=== PATIENT | female | born 1970 | race American Indian/Alaskan Native ===

== ENCOUNTER 2018-10-22 05:46 | Observation (INO) | payer OTHER ==
[2018-10-22] MEDS ORDERED: ASPIRIN PO ONE (05:53)
[2018-10-22 06:18] LABS: Basophils % (Auto) 0.5 % (0.0-1.8); Eosinophils # (Auto) 0.3 K/mm3 (0.0-0.4); Eosinophils % (Auto) 2.7 % (0.0-4.3); Hematocrit 33.5 % (30.3-42.9); Hemoglobin 11.2 gm/dl (10.1-14.3); Lymphocytes # (Auto) 3.2 K/mm3 (1.2-5.4); Lymphocytes % (Auto) 31.8 % (13.4-35.0); Mean Corpuscular HGB Conc 33 % (30-34); Mean Corpuscular Volume 88 fl (79-97); Monocytes # (Auto) 0.7 K/mm3 (0.0-0.8); Platelet Count 401 K/mm3 (140-440); Red Blood Count 3.81 M/mm3 (3.65-5.03); Red Cell Distribution Width 12.9 % (13.2-15.2)
--- NOTE | 2018-10-22 06:28 | XRay Report ---
CHEST 1 VIEW 10/22/2018 6:01 AM INDICATION / CLINICAL INFORMATION: Chest Pain. COMPARISON: None available. FINDINGS: SUPPORT DEVICES: None. HEART / MEDIASTINUM: No significant abnormality. LUNGS / PLEURA: No significant pulmonary or pleural abnormality. No pneumothorax. ADDITIONAL FINDINGS: No significant additional findings. IMPRESSION: 1. No acute findings. Signer Name: Fer Maciel MD Signed: 10/22/2018 6:24 AM Workstation Name: [id number]
[2018-10-22 06:45] LABS: BUN/Creatinine Ratio 27; Blood Urea Nitrogen 27 mg/dL (7-17); Calcium 9.3 mg/dL (8.4-10.2); Hemolysis Index 2
[2018-10-22 07:40] LABS: INR 0.91 (0.87-1.13)
--- NOTE | 2018-10-22 07:48 | Emergency Department Report ---
ED Chest Pain HPI - General Chief Complaint: Chest Pain Stated Complaint: CHEST PAIN TIGHTNESS Time Seen by Provider: 10/22/18 06:07 Source: patient, old records reviewed (no previous record) Mode of arrival: Ambulatory Limitations: No Limitations - History of Present Illness Initial Comments: 48-year-old female with a past medical history obesity, hypertension, diabetes (on metformin and insulin), and elevated cholesterol presents also complains of chest pain for several days. Patient c/o chest pain that is sharp and intermittent. No aggravating or alleviating factors reported. Patient denied any associated symptoms. This morning patient while walking to the bathroom pt had palpitations with shortness of breath the last several minutes. Patient has been compliant with her medications and even taking extra doses as needed for persistently elevated blood pressure. Patient recently returned from [place] on Oct 06. No calf tenderness or leg edema reported. Both of her blood pressure medications are from [place] and include Perinodopril 5mg (2 tabs in am and one in pm prn htn) and Amlopres 5mg qam. Patient also takes cholesterol medication. She does not take an aspirin daily, nonsmoker, no family history of CAD/UT, no previous stress tests in the past. Her primary care doctor scheduled an echocardiogram for tomorrow. Patient took her medication prior to arrival. PMD: Dr. Daley Severity scale (0 -10): 3 - Related Data Allergies Allergy/AdvReac Type Severity Reaction Status Date / Time No Known Allergies Allergy Verified 10/22/18 05:52 Heart Score - HEART Score History: Slightly suspicious EKG: Normal Age: 45-65 Risk factors: > 3 risk factors or hx of atherosclerotic disease Troponin: < normal limit HEART Score: 3 ED Review of Systems ROS: Stated complaint: CHEST PAIN TIGHTNESS Other details as noted in HPI Comment: All other systems reviewed and negative ED Past Medical Hx - Past Medical History Previous Medical History?: Yes Hx Hypertension: Yes Hx Diabetes: Yes - Surgical History Past Surgical History?: Yes Additional Surgical History: x4 - Social History Smoking Status: Never Smoker Substance Use Type: None ED Physical Exam - General Limitations: No Limitations - Other Other exam information: Normal: No acute distress Head: Atraumatic Eyes: Normal appearance, pupils equally reactive to light, extraocular movements intact ENT: Moist mucous membranes Neck: Normal appearance, no midline cervical tenderness, no meningismus Chest: Clear to auscultation bilaterally, no wheezes, rales, crackles Cardiovascular: Regular rate and rhythm, chest wall nontender Abdomen: Soft, nontender, nondistended, no rebound or guarding, normal bowel sounds Back: Normal inspection Extremity: Normal appearance, full range of motion,no calf tenderness or leg edema Neuro: Alert and oriented 3, speech normal, no gross motor sensory deficit Psych: Appropriate Skin: No rash ED Course Vital Signs 10/22/18 10/22/18 10/22/18 05:52 06:34 06:46 Temperature 98.2 F Pulse Rate 115 H 103 H 107 H Respiratory 18 16 14 Rate Blood Pressure 195/105 195/105 Blood Pressure 243/120 [Right] O2 Sat by Pulse 100 99 100 Oximetry 10/22/18 10/22/18 10/22/18 07:00 07:16 07:30 Temperature Pulse Rate 101 H 96 H 101 H Respiratory 14 17 19 Rate Blood Pressure 195/105 195/105 173/82 Blood Pressure [Right] O2 Sat by Pulse 100 98 100 Oximetry 10/22/18 10/22/18 07:46 09:37 Temperature 98.7 F Pulse Rate 93 H 88 Respiratory 16 19 Rate Blood Pressure 173/82 Blood Pressure 157/84 [Right] O2 Sat by Pulse 100 100 Oximetry ED Medical Decision Making - Lab Data Result diagrams: 10/22/18 06:04 10/22/18 06:04 Lab Results 10/22/18 10/22/18 10/22/18 Range/Units 06:04 06:04 06:11 WBC 10.0 (4.5-11.0) K/mm3 RBC 3.81 (3.65-5.03) M/mm3 Hgb 11.2 (10.1-14.3) gm/dl Hct 33.5 (30.3-42.9) % MCV 88 (79-97) fl MCH 29 (28-32) pg MCHC 33 (30-34) % RDW 12.9 L (13.2-15.2) % Plt Count 401 (140-440) K/mm3 Lymph % (Auto) 31.8 (13.4-35.0) % [place] % (Auto) 7.0 (0.0-7.3) % Eos % (Auto) 2.7 (0.0-4.3) % Baso % (Auto) 0.5 (0.0-1.8) % Lymph # 3.2 (1.2-5.4) K/mm3 [place] # 0.7 (0.0-0.8) K/mm3 Eos # 0.3 (0.0-0.4) K/mm3 Baso # 0.0 (0.0-0.1) K/mm3 Seg Neutrophils % 58.0 (40.0-70.0) % Seg Neutrophils # 5.8 (1.8-7.7) K/mm3 PT 12.0 L (12.2-14.9) Sec. INR 0.91 (0.87-1.13) D-Dimer 258.51 H (0-234) ng/mlDDU Sodium 136 L (137-145) mmol/L Potassium 3.5 L (3.6-5.0) mmol/L Chloride 100.0 (98-107) mmol/L Carbon Dioxide 23 (22-30) mmol/L Anion Gap 17 mmol/L BUN 27 H (7-17) mg/dL Creatinine 1.0 (0.7-1.2) mg/dL Estimated GFR 59 ml/min BUN/Creatinine Ratio 27 % Glucose 121 H (65-100) mg/dL Calcium 9.3 (8.4-10.2) mg/dL Troponin T < 0.010 (0.00-0.029) ng/mL HCG, Qual (Negative) 10/22/18 10/22/18 Range/Units 06:11 09:34 WBC (4.5-11.0) K/mm3 RBC (3.65-5.03) M/mm3 Hgb (10.1-14.3) gm/dl Hct (30.3-42.9) % MCV (79-97) fl MCH (28-32) pg MCHC (30-34) % RDW (13.2-15.2) % Plt Count (140-440) K/mm3 Lymph % (Auto) (13.4-35.0) % [place] % (Auto) (0.0-7.3) % Eos % (Auto) (0.0-4.3) % Baso % (Auto) (0.0-1.8) % Lymph # (1.2-5.4) K/mm3 [place] # (0.0-0.8) K/mm3 Eos # (0.0-0.4) K/mm3 Baso # (0.0-0.1) K/mm3 Seg Neutrophils % (40.0-70.0) % Seg Neutrophils # (1.8-7.7) K/mm3 PT (12.2-14.9) Sec. INR (0.87-1.13) D-Dimer (0-234) ng/mlDDU Sodium (137-145) mmol/L Potassium (3.6-5.0) mmol/L Chloride (98-107) mmol/L Carbon Dioxide (22-30) mmol/L Anion Gap mmol/L BUN (7-17) mg/dL Creatinine (0.7-1.2) mg/dL Estimated GFR ml/min BUN/Creatinine Ratio % Glucose (65-100) mg/dL Calcium (8.4-10.2) mg/dL Troponin T < 0.010 (0.00-0.029) ng/mL HCG, Qual Negative (Negative) - EKG Data -: EKG Interpreted by [place] EKG shows normal: sinus rhythm, axis (qrs 49), QRS complexes (qrsd 91), ST-T waves (no stemi) Rate: tachycardia (106) - EKG Data 10/22/18 11:09 repeat ekg in ed without acute changes - Radiology Data Radiology results: report reviewed CHEST 1 VIEW 10/22/2018 6:01 AM INDICATION / CLINICAL INFORMATION: Chest Pain. COMPARISON: None available. FINDINGS: SUPPORT DEVICES: None. HEART / MEDIASTINUM: No significant abnormality. LUNGS / PLEURA: No significant pulmonary or pleural abnormality. No pneumothorax. ADDITIONAL FINDINGS: No significant additional findings. IMPRESSION: 1. No acute findings. CTA CHEST WITH CONTRAST INDICATION : Chest pain, palpitations, recent travel. TECHNIQUE: Axial imaging performed through the chest, with contrast bolus timing set to maximize opacification of the pulmonary arteries. Sagittal and coronal reformatted images. 3-plane MIP reformatted images were obtained. All CT scans at this location are performed using CT dose reduction for ALARA by means of automated exposure control. 100 mL of intravenous contrast administered. COMPARISON: FINDINGS: Bolus: Contrast bolus timing is adequate. PTE: No filling defect is present to suggest PTE. Mediastinum: Heart and great vessels appear normal. No pathologic mediastinal adenopathy. Lungs: Lungs are clear. Bones: Degenerative changes in the spine with nothing acute. Upper abdomen: Limited imaging of the upper abdomen shows nothing acute. IMPRESSION: Negative for PTE. Clear lungs. 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 ED Disposition Clinical Impression: Chest pain, Palpitations, Uncontrolled hypertension Disposition: OP ADMIT IP TO THIS HOSP Is pt being admited?: Yes Condition: Stable Referrals: EVI ALEXIS MD [Primary Care Provider] - 3-5 Days Time of Disposition: 10:23 (Dr Abbasi/hosp)
--- NOTE | 2018-10-22 09:42 | Cat Scan Report ---
CTA CHEST WITH CONTRAST INDICATION : Chest pain, palpitations, recent travel. TECHNIQUE: Axial imaging performed through the chest, with contrast bolus timing set to maximize opa cification of the pulmonary arteries. Sagittal and coronal reformatted images. 3-plane MIP reformatte d images were obtained. All CT scans at this location are performed using CT dose reduction for ALAR A by means of automated exposure control. 100 mL of intravenous contrast administered. COMPARISON: FINDINGS: Bolus: Contrast bolus timing is adequate. PTE: No filling defect is present to suggest PTE. Mediastinum: Heart and great vessels appear normal. No pathologic mediastinal adenopathy. Lungs: Lungs are clear. Bones: Degenerative changes in the spine with nothing acute. Upper abdomen: Limited imaging of the upper abdomen shows nothing acute. IMPRESSION: Negative for PTE. Clear lungs. Signer Name: Rajan Moreno Jr, MD Signed: 10/22/2018 9:37 AM Workstation Name: [id number]
[2018-10-22] MEDS ORDERED: SODIUM CHLORIDE FLUSH SYRINGE 10 ML IV PRN (10:37)
[2018-10-22] MEDS ORDERED: MORPHINE IV PRN (10:37)
[2018-10-22] MEDS ORDERED: NITROSTAT SL PRN (10:37)
[2018-10-22] MEDS ORDERED: D50W (25GM) Syringe IV PRN (10:40)
[2018-10-22] MEDS ORDERED: APRESOLINE IV PRN (10:42)
--- NOTE | 2018-10-22 10:42 | History and Physical Report ---
History of Present Illness Date of examination: 10/22/18 Date of admission: 10/22/18 Chief complaint: Chest Pain History of present illness: Patient is a 48 year old female with medical history obesity, hypertension, diabetes (on metformin and insulin), and elevated cholesterol presents also complains of chest pain for about a week, she has been evaluated by her primary care doctor and set up for an outpatient cardiology evaluation but this morning woke up with sharp and intermittent located central and with no radiation. Sometimes the pain is reproducible. Also associated with palpitation and significantly elevated BP of 220 systolic pressure resulting in patient presenting to the ED She reports last night she noted her BP to be 160 which is unusal for her and proceeded in taking exta medication. Patient recently returned from [place] on Oct 06. No calf tenderness or leg edema reported. Both of her blood pressure medications are from [place] and include Perinodopril 5mg (2 tabs in am and one in pm prn htn) and Amlopres 5mg qam. Patient also takes cholesterol medication. She does not take an aspirin daily, nonsmoker, no family history of CAD/HI, no previous stress tests in the past. Her primary care doctor scheduled an echocardiogram for tomorrow. Patient took her medication prior to arrival. PMD: Dr. Daley/Lori Past History Past Medical History: diabetes, hypertension, hyperlipidemia Past Surgical History: denies: No surgical history Social history: Family history: no significant family history, hypertension. denies: CAD, cancer, diabetes Medications and Allergies Allergies Allergy/AdvReac Type Severity Reaction Status Date / Time No Known Allergies Allergy Verified 10/22/18 05:52 Active Meds: Active Medications Aspirin (Baby Aspirin) 81 mg PO QDAY [facility] Atorvastatin Calcium (Lipitor) 40 mg PO QHS [facility] Dextrose (D50w (25gm) Syringe) 50 ml IV PRN PRN PRN Reason: Hypoglycemia Hydralazine HCl (Apresoline) 10 mg IV Q4HR PRN PRN Reason: Hypertension Hydrochlorothiazide (Hctz) 25 mg PO QDAY [facility] Insulin Human Lispro (Humalog) 0 unit SUB-Q [facility]; Protocol Morphine Sulfate (Morphine) 2 mg IV Q5MIN PRN PRN Reason: Chest Pain unrelieved by NTG Nitroglycerin (Nitrostat) 0.4 mg SL Q5M PRN PRN Reason: Chest Pain Sodium Chloride (Sodium Chloride Flush Syringe 10 Ml) 10 ml IV PRN PRN PRN Reason: LINE FLUSH Review of Systems All systems: negative Constitutional: no fatigue, no weakness, no poor appetite, no daytime sleepiness, no chronic pain Ears, nose, mouth and throat: no ear pain, no ear discharge, no nasal con gestion, no sinus pain, no bleeding gums, no dysphagia, no sore throat, no swelling in mouth, no post-nasal drip, no vertigo, no neck lump Cardiovascular: chest pain, palpitations, high blood pressure, no orthopnea, no edema, no syncope, no lightheadedness, no shortness of breath, no dyspnea on exertion, no paroxysmal nocturnal dyspnea, no claudication, no phlebitis, no leg edema, no decreased exercise tolerance Respiratory: no cough, no cough with sputum, no hemoptysis, no shortness of breath, no dyspnea on exertion, no congestion, no wheezing, no pleurisy, no snoring, no sleep apnea, no home oxygen Gastrointestinal: no nausea, no diarrhea, no hematemesis, no hematochezia, no early satiety, no dyspepsia/bloating, no early satiety Genitourinary Female: no menorrhagia, no urinary frequency, no post void dribbling, no incomplete emptying, no abnormal vaginal bleeding, no decreased libido Menstruation: no post hysterectomy, no period normal, no period heavy, no menses variable Rectal: no pain, no itching Musculoskeletal: no neck stiffness, no neck pain, no shooting arm pain, no hot joints, no muscle weakness, no muscle cramps, no fractures Integumentary: no rash, no sores, no jaundice, no lesions, no darkening of skin, no dryness, no unusual bruising, no brittle nails, no hirsutism, no foot/leg ulcers Neurological: no transient paralysis, no weakness, no numbness, no seizures, no tremors, no headaches, no migraines, no convulsions, no change in speech, no confusion, no motor disturbance, no double vision, no hearing difficulties, no paralysis, no spasticity Psychiatric: no memory loss, no sleep disturbances, no change in libido, no suicidal ideation Endocrine: no cold intolerance, no polydipsia, no proptosis, no palpatations Hematologic/Lymphatic: no easy bruising Allergic/Immunologic: no allergic rhinitis Exam - Constitutional Vitals: Temp Pulse Resp BP Pulse Ox 98.7 F 88 19 157/84 100 10/22/18 09:37 10/22/18 09:37 10/22/18 09:37 10/22/18 09:37 10/22/18 09:37 General appearance: Present: mild distress, well-nourished - EENT Eyes: Present: PERRL, EOM intact ENT: hearing intact, clear oral mucosa - Neck Neck: Present: supple, normal ROM - Respiratory Respiratory effort: normal Respiratory: bilateral: CTA - Cardiovascular Rhythm: regular Heart Sounds: Present: S1 & S2. Absent: systolic murmur, diastolic murmur - Extremities Extremities: no ischemia, pulses intact, pulses symmetrical, No edema, normal temperature, normal color, Full ROM Peripheral Pulses: within normal limits - Abdominal General gastrointestinal: Present: soft, non-tender, non-distended, normal bowel sounds - Integumentary Integumentary: Present: clear, warm, dry - Musculoskeletal Musculoskeletal: strength equal bilaterally - Psychiatric Psychiatric: appropriate mood/affect, intact judgment & insight - Neurologic Neurologic: CNII-XII intact, moves all extremities - Allied Health Allied health notes reviewed: nursing Results - Labs CBC & Chem 7: 10/22/18 06:04 10/22/18 06:04 Labs: Laboratory Last Values WBC 10.0 K/mm3 (4.5-11.0) 10/22/18 06:04 RBC 3.81 M/mm3 (3.65-5.03) 10/22/18 06:04 Hgb 11.2 gm/dl (10.1-14.3) 10/22/18 06:04 Hct 33.5 % (30.3-42.9) 10/22/18 06:04 MCV 88 fl (79-97) 10/22/18 06:04 MCH 29 pg (28-32) 10/22/18 06:04 MCHC 33 % (30-34) 10/22/18 06:04 RDW 12.9 % (13.2-15.2) L 10/22/18 06:04 Plt Count 401 K/mm3 (140-440) 10/22/18 06:04 Lymph % (Auto) 31.8 % (13.4-35.0) 10/22/18 06:04 [place] % (Auto) 7.0 % (0.0-7.3) 10/22/18 06:04 Eos % (Auto) 2.7 % (0.0-4.3) 10/22/18 06:04 Baso % (Auto) 0.5 % (0.0-1.8) 10/22/18 06:04 Lymph # 3.2 K/mm3 (1.2-5.4) 10/22/18 06:04 [place] # 0.7 K/mm3 (0.0-0.8) 10/22/18 06:04 Eos # 0.3 K/mm3 (0.0-0.4) 10/22/18 06:04 Baso # 0.0 K/mm3 (0.0-0.1) 10/22/18 06:04 Seg Neutrophils % 58.0 % (40.0-70.0) 10/22/18 06:04 Seg Neutrophils # 5.8 K/mm3 (1.8-7.7) 10/22/18 06:04 PT 12.0 Sec. (12.2-14.9) L 10/22/18 06:11 INR 0.91 (0.87-1.13) 10/22/18 06:11 258.51 ng/mlDDU (0-234) H 10/22/18 06:11 Sodium 136 mmol/L (137-145) L 10/22/18 06:04 Potassium 3.5 mmol/L (3.6-5.0) L 10/22/18 06:04 Chloride 100.0 mmol/L (98-107) 10/22/18 06:04 Carbon Dioxide 23 mmol/L (22-30) 10/22/18 06:04 17 mmol/L 10/22/18 06:04 BUN 27 mg/dL (7-17) H 10/22/18 06:04 1.0 mg/dL (0.7-1.2) 10/22/18 06:04 Estimated GFR 59 ml/min 10/22/18 06:04 27 % 10/22/18 06:04 Glucose 121 mg/dL (65-100) H 10/22/18 06:04 Calcium 9.3 mg/dL (8.4-10.2) 10/22/18 06:04 < 0.010 ng/mL (0.00-0.029) 10/22/18 09:34 HCG, Qual Negative (Negative) 10/22/18 06:11 Assessment and Plan Assessment and plan: 48 YEAR OLD FEMALE WITH HX OF HTN, DM, Hyperlipidemia presenting with 2 weeks hx of intermittent chest pain, sharp and sometimes reporducible with associated Hypertensive urgency today Hypertensive urgency DM with hyperglycemia Hyperlipidemia Obesity Elevated D.dimer Hypokalemia Plan Admit to Tele on observation Cardiology consult, defer stress test to cardiologyh Obtain Echo Check doppler lower ext to rule out dvt, Chest pain protocol Monitor blood glucose Restart BP meds, with Prn Hydralazine Patient will need adjustment in BP meds and encourage to keep a diary Monitor on tele to ensure no arrhythmia Obtain TSH DVT/GI proph Plan discussed with patient and family Disposition based on clinical outcome. Advance Directives: Yes Plan of care discussed with patient/family: Yes
[2018-10-22] MEDS ORDERED: HCTZ PO SCH (11:00)
[2018-10-22 11:25] LABS: Basophils % (Auto) 0.4 % (0.0-1.8); Eosinophils % (Auto) 0.4 % (0.0-4.3); Hematocrit 34.3 % (30.3-42.9); Hemoglobin 11.4 gm/dl (10.1-14.3); Lymphocytes # (Auto) 1.4 K/mm3 (1.2-5.4); Lymphocytes % (Auto) 14.4 % (13.4-35.0); Mean Corpuscular HGB Conc 33 % (30-34); Mean Corpuscular Volume 86 fl (79-97); Monocytes # (Auto) 0.4 K/mm3 (0.0-0.8); Monocytes % (Auto) 4.2 % (0.0-7.3); Platelet Count 410 K/mm3 (140-440); Red Blood Count 3.96 M/mm3 (3.65-5.03); Red Cell Distribution Width 13.2 % (13.2-15.2)
[2018-10-22 11:33] LABS: BUN/Creatinine Ratio 24; Blood Urea Nitrogen 22 mg/dL (7-17); Calcium 9.1 mg/dL (8.4-10.2); Hemolysis Index 3
[2018-10-22] MEDS ORDERED: NORVASC PO ONE (12:00)
[2018-10-22] MEDS: HumaLOG SUB-Q SCH ×3 (12:00→21:28)
[2018-10-22 12:43] LABS: Chol/HDL Ratio 4.19 %
--- NOTE | 2018-10-22 13:19 | Consultation ---
History of Present Illness Consult date: 10/22/18 Requesting physician: JIMY PATTON Consult reason: chest pain History of present illness: the patient is a 48 year old female with a past medical history of hypertension, diabetes (on metformin and insulin), and HLP. She is previously unknown to our practice. She presented with c/o chest pain for about 2 weeks prior to arrival. She describes her pain as an intermittent fullness (similar to indigestion) in the left side of her chest which sometimes radiates into her upper back. The pain has no clear aggravating or alleviating factors. The pain has been occurring 3-4 times daily and lasts for several minutes per episode. The pain is sometimes associated with palpitations and SOB. She denies any n/v, diaphoresis, dizziness or syncope. Pt reports her BPs have been elevated at home (SBP 160s) despite taking her home medications as prescribed by her PCP, Dr Daley. Admission BP was 243/120. Pt denies any known prior cardiac issues, including CAD, AMI, HF or arrhythmia. On evaluation, she denies any current chest pain. She underwent echo earlier today and results are pending. Past History Past Medical History: diabetes, hypertension, hyperlipidemia Past Surgical History: denies: No surgical history Social history: , lives with family. denies: smoking, alcohol abuse, prescription drug abuse Family history: no significant family history, hypertension. denies: CAD, cancer, diabetes Medications and Allergies Allergies Allergy/AdvReac Type Severity Reaction Status Date / Time No Known Allergies Allergy Verified 10/22/18 05:52 Active Meds: Active Medications Aspirin (Baby Aspirin) 81 mg PO QDAY [facility] Atorvastatin Calcium (Lipitor) 40 mg PO QHS [facility] Dextrose (D50w (25gm) Syringe) 50 ml IV PRN PRN PRN Reason: Hypoglycemia Hydralazine HCl (Apresoline) 10 mg IV Q4HR PRN PRN Reason: Hypertension Insulin Human Lispro (Humalog) 0 unit SUB-Q [facility]; Protocol Last Admin: 10/22/18 12:00 Dose: Not Given Documented by: Lisinopril (Zestril) 20 mg PO QDAY [facility] Morphine Sulfate (Morphine) 2 mg IV Q5MIN PRN PRN Reason: Chest Pain unrelieved by NTG Nitroglycerin (Nitrostat) 0.4 mg SL Q5M PRN PRN Reason: Chest Pain Sodium Chloride (Sodium Chloride Flush Syringe 10 Ml) 10 ml IV PRN PRN PRN Reason: LINE FLUSH Review of Systems Constitutional: no weight loss, no weight gain, no fever, no chills, no sweats Ears, nose, mouth and throat: no ear pain, no nose pain, no sinus pressure, no sinus pain Cardiovascular: palpitations, shortness of breath, high blood pressure, no chest pain, no orthopnea, no edema, no syncope, no lightheadedness, no leg edema, no decreased exercise tolerance Respiratory: shortness of breath, no cough, no congestion, no wheezing, no pain on inspiration Gastrointestinal: no abdominal pain, no nausea, no vomiting, no diarrhea, no constipation, no change in bowel habits Genitourinary Female: no pelvic pain, no flank pain, no dysuria, no urinary frequency, no urgency Musculoskeletal: no neck stiffness, no neck pain, no shooting arm pain, no arm numbness/tingling, no low back pain, no shooting leg pain Integumentary: no rash, no pruritis, no redness, no sores, no wounds Neurological: no head injury, no paralysis, no weakness, no parathesias, no numbness, no tingling, no seizures, no syncope Psychiatric: no anxiety Endocrine: no cold intolerance, no heat intolerance Hematologic/Lymphatic: no easy bruising, no easy bleeding Allergic/Immunologic: no urticaria, no wheezing Physical Examination Vital Signs Temp Pulse Resp BP Pulse Ox 98.2 F 115 H 18 243/120 100 10/22/18 05:52 10/22/18 05:52 10/22/18 05:52 10/22/18 05:52 10/22/18 05:52 General appearance: no acute distress HEENT: Positive: PERRL, Normocephaly, Mucus Membranes Moist Neck: Positive: neck supple, trachea midline Cardiac: Positive: Reg Rate and Rhythm, S1/S2 Lungs: Positive: Decreased Breath Sounds Neuro: Positive: Grossly Intact Abdomen: Negative: Tender Skin: Negative: Rash Musculoskeletal: No Pain Extremities: Absent: edema Results 10/22/18 10:57 10/22/18 10:57 Coagulation 10/22/18 Range/Units 06:11 PT 12.0 L (12.2-14.9) Sec. INR 0.91 (0.87-1.13) Lipids 10/22/18 Range/Units 10:57 Triglycerides 154 H (2-149) mg/dL Cholesterol 197 (50-199) mg/dL HDL Cholesterol 47 (40-59) mg/dL Cholesterol/HDL Ratio 4.19 % CBC 10/22/18 10/22/18 Range/Units 06:04 10:57 WBC 10.0 9.8 (4.5-11.0) K/mm3 RBC 3.81 3.96 (3.65-5.03) M/mm3 Hgb 11.2 11.4 (10.1-14.3) gm/dl Hct 33.5 34.3 (30.3-42.9) % Plt Count 401 410 (140-440) K/mm3 Lymph # 3.2 1.4 (1.2-5.4) K/mm3 [place] # 0.7 0.4 (0.0-0.8) K/mm3 Eos # 0.3 0.0 (0.0-0.4) K/mm3 Baso # 0.0 0.0 (0.0-0.1) K/mm3 Comprehensive Metabolic Panel 10/22/18 10/22/18 Range/Units 06:04 10:57 Sodium 136 L 137 (137-145) mmol/L Potassium 3.5 L 4.4 D (3.6-5.0) mmol/L Chloride 100.0 103.1 (98-107) mmol/L Carbon Dioxide 23 24 (22-30) mmol/L BUN 27 H 22 H (7-17) mg/dL Creatinine 1.0 0.9 (0.7-1.2) mg/dL Glucose 121 H 91 (65-100) mg/dL Calcium 9.3 9.1 (8.4-10.2) mg/dL - Imaging and Cardiology Echo: pending EKG: report reviewed, image reviewed EKG interpretations - Telemetry EKG Rhythm: Sinus Rhythm - EKG Sinus rhythms and dysrhythmias: sinus rhythm Assessment and Plan DDimer elevated - chest CTA negative for PE, NAF. Await echo. Optimize BPs - initiate lopressor, cont lisinopril. AMI ruled out. Plan for lexiscan MPI stress test in AM. NPO after MN. The patient has been seen in conjunction with Dr. Reyna who agrees with the assessment and plan of care. - Patient Problems (1) Chest pain Current Visit: Yes Status: Acute (2) Hypertensive urgency Current Visit: Yes Status: Acute (3) Diabetes Current Visit: Yes Status: Chronic (4) Hyperlipidemia Current Visit: Yes Status: Chronic
[2018-10-22] MEDS: LOPRESSOR PO SCH (21:28)
[2018-10-23] MEDS ORDERED: TYLENOL PO PRN (05:49)
[2018-10-23] MEDS ORDERED: LEXISCAN IV ONE ×2 (07:09→07:34)
[2018-10-23] MEDS: HumaLOG SUB-Q SCH ×2 (08:14→12:54)
[2018-10-23] MEDS ORDERED: ZESTRIL PO SCH (10:00)
[2018-10-23] MEDS ORDERED: BABY ASPIRIN PO SCH (10:00)
[2018-10-23] MEDS: LOPRESSOR PO SCH (10:58)
[2018-10-23 11:01] VITALS: BP 145/85
--- NOTE | 2018-10-23 11:33 | Discharge Summary ---
Providers - Providers Date of Admission: 10/22/18 10:28 Attending physician: JIMY PATTON MD 10/22/18 Consult to Cardiac Rehabilitation [CONS] Routine Reason For Exam: Phase I 10/22/18 10:38 Consult to Cardiology [CONS] Routine Consulting Provider: DIANE SAINI Reason For Exam: chest pain Primary care physician: EVI ALEXIS Hospitalization Condition: Stable Disposition: DC-01 TO HOME OR SELFCARE Core Measure Documentation - Palliative Care Palliative Care/ Comfort Measures: Not Applicable Exam - Constitutional Vitals: Temp Pulse Resp BP Pulse Ox 98.3 F 89 19 145/85 100 10/23/18 07:44 10/23/18 10:58 10/23/18 07:44 10/23/18 10:58 10/23/18 10:32 Plan Activity: advance as tolerated, fall precautions Diet: low fat Special Instructions: record daily weights, record daily BP diary Follow up with: EVI ALEXIS MD [Primary Care Provider] - 3-5 [facility] [Staff Physician] - 7 Days Prescriptions: AtorvaSTATin [Lipitor] 40 mg PO QHS #30 tablet Metoprolol [Lopressor TAB] 50 mg PO BID #30 tablet amLODIPine [Norvasc] 10 mg PO DAILY #30 tab Lisinopril [Zestril TAB] 20 mg PO QDAY #30 tablet
--- NOTE | 2018-10-23 13:23 | Progress Note ---
Assessment and Plan Echo reviewed - EF 55-60%, impaired relaxation. S/p lexiscan MPI stress test today which was negative. D/c ASA. Optimize BPs - increase lopressor to 50mg BID. Currently stable cardiac status. Pt may discharge home from cardiology standpoint. Recommend follow up in our office with Dr. Reyna within 1-2 weeks of hospital discharge ([phone]). The patient has been seen in conjunction with Dr. Reyna who agrees with the assessment and plan of care. - Patient Problems (1) Chest pain Current Visit: Yes Status: Acute (2) Hypertensive urgency Current Visit: Yes Status: Acute (3) Diabetes Current Visit: Yes Status: Chronic (4) Hyperlipidemia Current Visit: Yes Status: Chronic Subjective Date of service: 10/23/18 Principal diagnosis: cp; htn Interval history: for stress test. no complaints. Objective Last Vital Signs Temp 98.3 F 10/23/18 07:44 Pulse 89 10/23/18 10:58 Resp 18 10/23/18 10:00 BP 145/85 10/23/18 10:58 Pulse Ox 100 10/23/18 10:32 - Physical Examination General: No Apparent Distress HEENT: Positive: PERRL, Normocephaly, Mucus Membranes Moist Neck: Positive: neck supple, trachea midline Cardiac: Positive: Reg Rate and Rhythm, S1/S2 Lungs: Positive: Decreased Breath Sounds Neuro: Positive: Grossly Intact Abdomen: Negative: Tender Skin: Negative: Rash Musculoskeletal: No Pain Extremities: Absent: edema - Imaging and Cardiology EKG: report reviewed, image reviewed Echo: pending - EKG Sinus rhythms and dysrhythmias: sinus rhythm
[2018-10-23] MEDS ORDERED: LOPRESSOR PO SCH (14:23)
--- NOTE | 2018-10-24 00:22 | Treadmill Report ---
SINGLE ISOTOPE DUAL STUDY MYOCARDIAL PERFUSION SCAN REPORT AGE: 48. SEX: Female. REFERRING PHYSICIAN: Dr. Abbasi. SEEN AND DICTATED BY: Dr. Garrison [facility]. DESCRIPTION OF PROCEDURE: The patient received 10 mCi of technetium 99m Myoview intravenously under resting conditions. Resting myocardial perfusion scan was done. Subsequently, the patient underwent a Lexiscan stress test as per the protocol. During Lexiscan stress, the patient received 0.4 mg of Lexiscan intravenously. After 30-60 minutes, post-stress images were done. Computerized reconstruction images were performed for analysis. The post-stress images did not reveal any perfusion abnormality. Gated study did not reveal any wall motion abnormality. The left ventricular ejection fraction was normal and was calculated to be 63%. The resting images were also normal. CONCLUSION: 1. Normal resting as well as stress myocardial perfusion scan images after the patient underwent Lexiscan stress test. 2. No wall motion abnormality. 3. Normal left ventricular ejection fraction of 63%. JOB# [id number] [facility]
== END 2018-10-23 16:30 | disposition home or self-care (01) ==
LOC: ED 05:46 → INTOOBSV 10:28 → 4A 10:28
PROVIDERS: ADMIT Internal Medicine; ATTEND Internal Medicine
DX: I16.0 Hypertensive urgency (principal); R07.89 Other chest pain; E11.65 Type 2 diabetes mellitus with hyperglycemia; I10 Essential (primary) hypertension; R00.2 Palpitations; R07.9 Chest pain, unspecified; E87.6 Hypokalemia
CPT/HCPCS: 36415; 71045; 71275; 78452; 80048; 80061; 82962; 84443; 84484; 84703; 85025; 85379; 85610; 93005; 93010; 93017; 93306; 96372; 96374; 99284; A9270; A9502; G0378; J0360; J2785; Q9967; J1815

== ENCOUNTER 2020-05-23 10:53 | Outpatient (CLI) | payer OTHER ==
--- NOTE | 2020-05-23 13:41 | XRay Report ---
CHEST 2 VIEWS 1125 INDICATION / CLINICAL INFORMATION: CHEST PAIN,UNSPECIFIED COMPARISON: None currently available. FINDINGS: SUPPORT DEVICES: None. HEART / MEDIASTINUM: No significant abnormality. LUNGS / PLEURA: No significant pulmonary or pleural abnormality. No pneumothorax. ADDITIONAL FINDINGS: No significant additional findings. IMPRESSION: No significant acute abnormality Signer Name: Josef Mcmanus MD Signed: 05/23/2020 1:36 PM Workstation Name: [id number]
== END 2020-05-23 10:54 | disposition home or self-care (01) ==
LOC: XRAY 10:53
PROVIDERS: ATTEND Internal Medicine
DX: R07.9 Chest pain, unspecified (principal)
CPT/HCPCS: 71046

== ENCOUNTER 2020-10-29 02:57 | Observation (INO) | payer OTHER ==
[2020-10-29 05:54] LABS: Basophils % (Auto) 0.4 % (0.0-1.8); Eosinophils # (Auto) 0.3 K/mm3 (0.0-0.4); Eosinophils % (Auto) 3.1 % (0.0-4.3); Hematocrit 34.2 % (30.3-42.9); Hemoglobin 11.7 gm/dl (10.1-14.3); Lymphocytes # (Auto) 1.3 K/mm3 (1.2-5.4); Lymphocytes % (Auto) 15.3 % (13.4-35.0); Mean Corpuscular HGB Conc 34 % (30-34); Mean Corpuscular Volume 86 fl (79-97); Monocytes # (Auto) 0.5 K/mm3 (0.0-0.8); Monocytes % (Auto) 6.1 % (0.0-7.3); Platelet Count 349 K/mm3 (140-440); Red Blood Count 3.97 M/mm3 (3.65-5.03); Red Cell Distribution Width 14.1 % (13.2-15.2)
--- NOTE | 2020-10-29 06:04 | XRay Report ---
CHEST 1 VIEW 10/29/2020 4:54 AM INDICATION / CLINICAL INFORMATION: chest pain. COMPARISON: None available. FINDINGS: SUPPORT DEVICES: None. HEART / MEDIASTINUM: No significant abnormality. LUNGS / PLEURA: No significant pulmonary or pleural abnormality. No pneumothorax. ADDITIONAL FINDINGS: No significant additional findings. IMPRESSION: 1. No acute findings. Signer Name: Jim Agudelo MD Signed: 10/29/2020 5:59 AM Workstation Name: [id number]
--- NOTE | 2020-10-29 06:18 | Event Note ---
ED Screening Note Date of service: 10/29/20 Time: 05:15 ED Screening Note: Patient is a 50-year-old female with a history of hypertension, anxiety, hyperlipidemia and bhm-znzlcjg-djuicilxi diabetes who presents to the ED with complaint of persistently elevated blood pressure and left-sided chest pain that radiates to the left arm for the last 2 days, worse in the last 12 hours. Patient states that she already takes three blood pressure medications including amlodipine 5 mg daily, losartan and hydrochlorothiazide 25 mg. Patient states that prior to arrival in the ED her blood pressure was 220 systolic and 115 diastolic. Patient denies dizziness, syncope, nausea and vomiting, abdominal pain, diaphoresis, palpitations, neck pain, headache, seizures, numbness and tingling or weakness of upper and lower extremities bilaterally or low back pain. This initial assessment/diagnostic orders/clinical plan/treatment(s) is/are subject to change based on patients health status, clinical progression and re- assessment by fellow clinical providers in the ED. Further treatment and workup at subsequent clinical providers discretion. Patient/guardian urged not to elope from the ED as their condition may be serious if not clinically assessed and managed. Initial orders include: EKG, CBC, CMP, troponin, chest x-ray, TSH
[2020-10-29 06:39] LABS: Alanine Aminotransferase 12 units/L (7-56); Albumin 3.8 g/dL (3.9-5); BUN/Creatinine Ratio 21; Blood Urea Nitrogen 30 mg/dL (7-17); Calcium 9.8 mg/dL (8.4-10.2); Hemolysis Index 6
[2020-10-29] MEDS ORDERED: SODIUM CHLORIDE 0.9% 1000 ML 1,000 ML IV ONE ×2 (06:44→10:38)
[2020-10-29] MEDS: ASPIRIN 325 MG TAB PO ONE ×2 (11:01→11:33)
--- NOTE | 2020-10-29 11:05 | Emergency Department Report ---
HPI - General Chief Complaint: High BP Time Seen by Provider: 10/29/20 07:23 - HPI HPI: Room 36 The patient is a 50-year-old female present with a chief complaint of hypertension. The patient states last night at approximately 02: 00 she had difficulty falling asleep. Patient states she began to feel anxious and her heart rate was elevated which prompted her to check her blood pressure. Patient states her systolic was over 200 so she came to the emergency department. The patient states she was instructed by her primary physician to stop all sodium intake approximately 11 days ago. Patient denies ever having any chest pain to me. Patient also denies shortness of breath and nausea/vomiting. ED Past Medical Hx - Past Medical History Previous Medical History?: Yes Hx Hypertension: Yes Hx Diabetes: Yes - Surgical History Past Surgical History?: Yes Additional Surgical History: x4 - Family History Family history: no significant - Social History Smoking Status: Never Smoker Substance Use Type: None (Denies illicit drug use) - Medications Home Medications: Home Medications Medication Instructions Recorded Confirmed Last Taken Type Insulin Glargine 25 units SQ HS 10/22/18 10/22/18 Unknown History metFORMIN [Glucophage] 850 mg PO BID 10/22/18 10/22/18 Unknown History AtorvaSTATin [Lipitor] 40 mg PO QHS #30 tablet 10/23/18 Unknown Rx Metoprolol [Lopressor TAB] 50 mg PO BID #30 tablet 10/23/18 Unknown Rx amLODIPine [Norvasc] 10 mg PO DAILY #30 tab 10/23/18 Unknown Rx lisinopriL [Zestril TAB] 20 mg PO QDAY #30 tablet 10/23/18 Unknown Rx ED Review of Systems ROS: Stated complaint: HIGH BP Other details as noted in HPI Constitutional: no symptoms reported Eyes: denies: eye pain ENT: denies: throat pain Respiratory: denies: shortness of breath Cardiovascular: denies: chest pain Endocrine: no symptoms reported Gastrointestinal: denies: abdominal pain, nausea, vomiting Genitourinary: denies: dysuria Musculoskeletal: back pain Neurological: denies: headache Physical Exam - Physical Exam Vital Signs: Vital Signs 10/29/20 10/29/20 10/29/20 04:26 09:40 09:45 Temperature 98.6 F Pulse Rate 110 H 98 H 97 H Respiratory 18 15 18 Rate Blood Pressure 234/134 O2 Sat by Pulse 99 100 100 Oximetry 10/29/20 10/29/20 10/29/20 10:01 10:15 10:32 Temperature 98.8 F Pulse Rate 100 H 95 H 98 H Respiratory 23 16 20 Rate Blood Pressure 142/84 O2 Sat by Pulse 100 100 99 Oximetry Physical Exam: GENERAL: The patient is well-developed well-nourished female lying on stretcher not appearing to be in acute distress. [] HEENT: Normocephalic. Atraumatic. Extraocular motions are intact. Patient has moist mucous membranes. NECK: Supple. Trachea midline CHEST/LUNGS: Clear to auscultation. There is no respiratory distress noted. HEART/CARDIOVASCULAR: Regular. There is no tachycardia. There is no gallop rub or murmur. ABDOMEN: Abdomen is soft, nontender. Patient has normal bowel sounds. There is no abdominal distention. SKIN: There is no rash. There is no edema. There is no diaphoresis. NEURO: The patient is awake, alert, and oriented. The patient is cooperative. The patient has no focal neurologic deficits. The patient has normal speech. GCS 15 MUSCULOSKELETAL: There is no evidence of acute injury. ED Course Vital Signs 10/29/20 10/29/20 10/29/20 04:26 09:40 09:45 Temperature 98.6 F Pulse Rate 110 H 98 H 97 H Respiratory 18 15 18 Rate Blood Pressure 234/134 O2 Sat by Pulse 99 100 100 Oximetry 10/29/20 10/29/20 10/29/20 10:01 10:15 10:32 Temperature 98.8 F Pulse Rate 100 H 95 H 98 H Respiratory 23 16 20 Rate Blood Pressure 142/84 O2 Sat by Pulse 100 100 99 Oximetry ED Medical Decision Making - Lab Data Result diagrams: 10/29/20 05:40 10/29/20 05:40 Laboratory Tests 10/29/20 10/29/20 10/29/20 05:40 05:40 08:48 WBC 8.7 RBC 3.97 Hgb 11.7 Hct 34.2 MCV 86 MCH 30 MCHC 34 RDW 14.1 Plt Count 349 Lymph % (Auto) 15.3 [place] % (Auto) 6.1 Eos % (Auto) 3.1 Baso % (Auto) 0.4 Lymph # (Auto) 1.3 [place] # (Auto) 0.5 Eos # (Auto) 0.3 Baso # (Auto) 0.0 Seg Neutrophils % 75.1 H Seg Neutrophils # 6.5 Sodium 120 L Potassium 3.9 Chloride 84.7 L Carbon Dioxide 24 Anion Gap 15 BUN 30 H Creatinine 1.4 H Estimated GFR 48 BUN/Creatinine Ratio 21 Glucose 187 H POC Glucose Calcium 9.8 Total Bilirubin 0.40 AST 16 ALT 12 Alkaline Phosphatase 60 Troponin T < 0.010 Total Protein 7.5 Albumin 3.8 L Albumin/Globulin Ratio 1.0 TSH 1.550 10/29/20 09:43 WBC RBC Hgb Hct MCV MCH MCHC RDW Plt Count Lymph % (Auto) [place] % (Auto) Eos % (Auto) Baso % (Auto) Lymph # (Auto) [place] # (Auto) Eos # (Auto) Baso # (Auto) Seg Neutrophils % Seg Neutrophils # Sodium Potassium Chloride Carbon Dioxide Anion Gap BUN Creatinine Estimated GFR BUN/Creatinine Ratio Glucose POC Glucose 168 H Calcium Total Bilirubin AST ALT Alkaline Phosphatase Troponin T Total Protein Albumin Albumin/Globulin Ratio TSH - EKG Data -: EKG Interpreted by Me EKG shows normal: sinus rhythm Rate: normal - EKG Data When compared to previous EKG there are: previous EKG unavailable Interpretation: other (No ischemic changes seen) - Radiology Data Radiology results: report reviewed (Chest x-ray), image reviewed (Chest x-ray) interpreted by me: Chest x-ray-no focal infiltrates, no pneumothorax [place] [id number] XRay Report Signed Patient: VERO IRIZRARY R#: [id number] : 1970 Acct:[id number] Age/Sex: 50 / F ADM Date: 10/29/20 Loc: ED Attending Dr: Ordering Physician: NYDIA BRANTLEY Date of Service: 10/29/20 Procedure(s): XR chest 1V ap Accession Number(s): [id number] cc: NYDIA BRANTLEY Fluoro Time In Minutes: CHEST 1 VIEW 10/29/2020 4:54 AM INDICATION / CLINICAL INFORMATION: chest pain. COMPARISON: None available. FINDINGS: SUPPORT DEVICES: None. HEART / MEDIASTINUM: No significant abnormality. LUNGS / PLEURA: No significant pulmonary or pleural abnormality. No pneumothorax. ADDITIONAL FINDINGS: No significant additional findings. IMPRESSION: 1. No acute findings. Signer Name: Jim Agudelo MD Signed: 10/29/2020 5:59 AM Workstation Name: [id number] Transcribed By: CW Dictated By: TATY AGUDELO MD Electronically Authenticated By: TATY AGUDELO MD Signed Date/Time: 10/29/20558 DD/ 8 TD/TT: Print - Differential Diagnosis Hypertension, anxiety Critical care attestation.: If time is entered above; I have spent that time in minutes in the direct care of this critically ill patient, excluding procedure time. ED Disposition Clinical Impression: Hyponatremia, Hypertension Disposition: ADMITTED INPATIENT Is pt being admited?: Yes Does the pt Need Aspirin: No Condition: Fair Instructions: Hypertension (ED) Referrals: EVI ALEXIS MD [Primary Care Provider] - 3-5 Days Time of Disposition: 11:08 (Hospitalist called (Dr Bran))
--- NOTE | 2020-10-29 11:20 | History and Physical Report ---
History of Present Illness Date of examination: 10/29/20 Date of admission: 10/29/20 Chief complaint: High blood pressure History of present illness: The patient is a 50-year-old female with h/o IDDM, HTN presented to ER with a complaint of uncontrolled hypertension. The patient states last night she began to feel anxious and her heart rate was elevated which prompted her to check her blood pressure. Patient states her systolic was over 200 so she came to the e mergency department. In the ER she noted to have Na of 120 with Cr 1.4. The patient states she was instructed by her primary physician to stop all sodium intake approximately 10-11 days ago. Patient denies ever having any chest pain, shortness of breath and nausea/vomiting. She was started on NS and admitted for observation. Review of System: Constitutional: no fever, no chills, no weight loss Ears, eyes, nose, mouth and throat: no nasal congestion, no nasal discharge, no sinus pressure, no vision change, no red eye. Neck: No neck pain or rigidity. Cardiovascular: No chest pain, no orthopnea, no palpitations, no leg swelling Respiratory: No shortness of breath, no cough, no congestion, no wheezing Gastrointestinal: no abdominal pain, no nausea, no vomiting Genitourinary : no dysuria, no hematuria Musculoskeletal: no joint swelling or muscle ache Integumentary: no rash, no pruritis Neurological: no parathesias, no numbness, no tingling Endocrine: no cold or heat intolerance, no polyuria or polydipsia Hematologic/Lymphatic: no easy bruising, no easy bleeding, no gland swelling Allergic/Immunologic: no urticaria, no angioedema. Past History Past Medical History: diabetes, hypertension, hyperlipidemia Past Surgical History: (x 4) Social history: denies: smoking, alcohol abuse, IV drug use Family history: diabetes, hypertension Medications and Allergies Allergies Allergy/AdvReac Type Severity Reaction Status Date / Time No Known Allergies Allergy Verified 10/22/18 05:52 Home Medications Medication Instructions Recorded Confirmed Last Taken Type AtorvaSTATin [Lipitor] 40 mg PO QHS #30 tablet 10/23/18 10/29/20 10/28/20 Rx Basaglar Kwikpen U-100 40 units SQ 10/29/20 10/28/20 History Empagliflozin [Jardiance] 10 mg PO DAILY 10/29/20 10/29/20 10/28/20 History HCTZ 25 mg PO DAILY 10/29/20 10/29/20 10/28/20 History Losartan [Cozaar] 1 tab PO DAILY 10/29/20 10/29/20 10/28/20 History Active Meds: Active Medications Sodium Chloride (Nacl 0.9% 1000 Ml) 1,000 mls @ 250 mls/hr IV ONCE ONE Stop: 10/29/20 14:37 Exam - Physical Exam Narrative exam: GENERAL: well-developed and well-nourished obese -[place] female lying on bed appeared to be in no discomfort. HEENT: Normocephalic. Atraumatic. No conjunctival congestion or icterus. Patient has moist mucous membranes. NECK: Supple. Trachea midline. CHEST/LUNGS: Clear to auscultated bilaterally, breathing nonlabored. No wheezes crackles or rhonchi. HEART/CARDIOVASCULAR: Regular in rate and rhythm. S1 and S2 positive. ABDOMEN: Abdomen is soft, nontender. Patient has normal bowel sounds. SKIN: There is no rash. Warm and dry. NEURO: No focal motor deficit. Follows command. MUSCULOSKELETAL: No joint effusion or tenderness. EXTRIMITY: No edema, no cyanosis or clubbing. PSYCH: Cooperative. - Constitutional Vitals: Temp Pulse Resp BP Pulse Ox 98.8 F 98 H 20 142/84 99 10/29/20 10:32 10/29/20 10:32 10/29/20 10:32 10/29/20 10:32 10/29/20 10:32 HEART Score - HEART Score Troponin: Troponin T < 0.010 ng/mL (0.00-0.029) 10/29/20 05:40 Results - Labs CBC & Chem 7: 10/29/20 05:40 10/29/20 16:58 Labs: Abnormal lab results 10/29/20 10/29/20 10/29/20 Range/Units 05:40 05:40 09:43 Seg Neutrophils % 75.1 H (40.0-70.0) % Sodium 120 L (137-145) mmol/L Chloride 84.7 L (98-107) mmol/L BUN 30 H (7-17) mg/dL Creatinine 1.4 H (0.6-1.2) mg/dL Glucose 187 H (65-100) mg/dL POC Glucose 168 H (70-105) mg/dL Albumin 3.8 L (3.9-5) g/dL - Imaging and Cardiology Chest x-ray: report reviewed (no acute change) Assessment and Plan Hyponatremia, likely due to HCTZ and poor sodium intake -DC HCTZ for now, continue gentle IV fluid hydration, repeat BMP DAVID, likely due to dehydration/vasomotor nephropathy -Continue gentle hydration, follow BMP DM type 2 -Consistent carb diet, long-acting and sliding scale insulin Hypertension, controlled -Resume home meds, hold HCTZ -Continue to monitor Vitals DVT prophylaxis, SCD --We will admit the patient for observation status, blood pressure and sodium level improves possible discharge tomorrow morning
[2020-10-29] MEDS: amLODIPine 5 MG TAB PO SCH (16:36)
[2020-10-29] MEDS: METOPROLOL TARTRATE 50 MG TAB PO SCH (16:36)
[2020-10-29] MEDS: SODIUM CHLORIDE 0.9% 1000 ML 1,000 ML IV SCH (16:38)
[2020-10-29 17:30] LABS: Calcium 8.6 mg/dL (8.4-10.2)
[2020-10-29] MEDS: INSULIN GLARGINE 100 UNITS/ML SUB-Q SCH (22:00)
[2020-10-29] MEDS ORDERED: INSULIN GLARGINE 25 UNIT SQ SCH (22:00)
[2020-10-29] MEDS: HEPARIN 5,000 UNIT/1 ML VIAL SUB-Q SCH (23:00)
[2020-10-30] MEDS: INSULIN REGULAR, HUMAN 100 UNITS/1 ML SUB-Q SCH ×5 (01:56→22:22)
[2020-10-30] MEDS: METOPROLOL TARTRATE 50 MG TAB PO SCH ×4 (06:24→22:05)
[2020-10-30] MEDS: SODIUM CHLORIDE 0.9% 1000 ML 1,000 ML IV SCH (06:26)
[2020-10-30] MEDS: HEPARIN 5,000 UNIT/1 ML VIAL SUB-Q SCH ×3 (06:30→21:55)
[2020-10-30] MEDS: amLODIPine 5 MG TAB PO SCH (10:23)
--- NOTE | 2020-10-30 11:13 | Progress Note ---
Assessment and Plan Assessment and plan: Hyponatremia, likely due to HCTZ and poor sodium intake -DC HCTZ for now, continue gentle IV fluid hydration, repeat BMP DAVID, likely due to dehydration/vasomotor nephropathy -Continue gentle hydration, follow BMP DM type 2 -Consistent carb diet, long-acting and sliding scale insulin Hypertension, controlled -Resume home meds, hold HCTZ -Continue to monitor Vitals DVT prophylaxis, SCD --We will admit the patient for observation status, blood pressure and sodium level improves possible discharge tomorrow morning 10/30/20 Patient with hyponatremia, DAVID. She feels better. Sodium improving, now 136. Cr 1.3. Cont ivf , recheck labs in am Poss dc tomorrow if Cr and Na normal History Interval history: Feels better BP improved Hospitalist Physical - Physical exam Narrative exam: Gen:Not in acute distress, lying in bed HEENT:Normocephalic, atraumatic Neck:supple, no JVD Lungs: clear to auscultation ,no wheeze Heart:S1 and S2 reg, no murmurs, rubs or gallop Abd:Soft, non tender, non distended, normal bowel sounds Ext:No edema. no clubbing, no cyanosis Neuro:Awake, alert, oriented X 3, moves all ext - Constitutional Vitals: Temp Pulse Resp BP Pulse Ox 98.1 F 71 16 151/86 99 10/30/20 05:14 10/30/20 05:14 10/30/20 05:14 10/30/20 05:14 10/30/20 05:14 HEART Score - HEART Score Troponin: Troponin T < 0.010 ng/mL (0.00-0.029) 10/29/20 05:40 Results - Labs CBC & Chem 7: 10/29/20 05:40 10/30/20 04:52 Labs: Laboratory Last Values WBC 8.7 K/mm3 (4.5-11.0) 10/29/20 05:40 RBC 3.97 M/mm3 (3.65-5.03) 10/29/20 05:40 Hgb 11.7 gm/dl (10.1-14.3) 10/29/20 05:40 Hct 34.2 % (30.3-42.9) 10/29/20 05:40 MCV 86 fl (79-97) 10/29/20 05:40 MCH 30 pg (28-32) 10/29/20 05:40 MCHC 34 % (30-34) 10/29/20 05:40 RDW 14.1 % (13.2-15.2) 10/29/20 05:40 Plt Count 349 K/mm3 (140-440) 10/29/20 05:40 Lymph % (Auto) 15.3 % (13.4-35.0) 10/29/20 05:40 [place] % (Auto) 6.1 % (0.0-7.3) 10/29/20 05:40 Eos % (Auto) 3.1 % (0.0-4.3) 10/29/20 05:40 Baso % (Auto) 0.4 % (0.0-1.8) 10/29/20 05:40 Lymph # (Auto) 1.3 K/mm3 (1.2-5.4) 10/29/20 05:40 [place] # (Auto) 0.5 K/mm3 (0.0-0.8) 10/29/20 05:40 Eos # (Auto) 0.3 K/mm3 (0.0-0.4) 10/29/20 05:40 Baso # (Auto) 0.0 K/mm3 (0.0-0.1) 10/29/20 05:40 Seg Neutrophils % 75.1 % (40.0-70.0) H 10/29/20 05:40 Seg Neutrophils # 6.5 K/mm3 (1.8-7.7) 10/29/20 05:40 Sodium 136 mmol/L (137-145) L D 10/30/20 04:52 Potassium 4.1 mmol/L (3.6-5.0) 10/30/20 04:52 Chloride 105.2 mmol/L (98-107) 10/30/20 04:52 Carbon Dioxide 26 mmol/L (22-30) 10/30/20 04:52 Anion Gap 9 mmol/L 10/30/20 04:52 BUN 24 mg/dL (7-17) H 10/30/20 04:52 Creatinine 1.3 mg/dL (0.6-1.2) H 10/30/20 04:52 Estimated GFR 52 ml/min 10/30/20 04:52 BUN/Creatinine Ratio 18 % 10/30/20 04:52 Glucose 127 mg/dL (65-100) H 10/30/20 04:52 POC Glucose 111 mg/dL (70-105) H 10/30/20 07:43 Calcium 9.0 mg/dL (8.4-10.2) 10/30/20 04:52 Total Bilirubin 0.40 mg/dL (0.1-1.2) 10/29/20 05:40 AST 16 units/L (5-40) 10/29/20 05:40 ALT 12 units/L (7-56) 10/29/20 05:40 Alkaline Phosphatase 60 units/L (35-129) 10/29/20 05:40 Troponin T < 0.010 ng/mL (0.00-0.029) 10/29/20 05:40 Total Protein 7.5 g/dL (6.3-8.2) 10/29/20 05:40 Albumin 3.8 g/dL (3.9-5) L 10/29/20 05:40 Albumin/Globulin Ratio 1.0 % 10/29/20 05:40 TSH 1.550 mlU/mL (0.270-4.200) 10/29/20 08:48 [place]/IV: Voiding Method Toilet Active Medications - Current Medications Current Medications: Generic Name Dose Route Start Last Admin Trade Name Freq PRN Reason Stop Dose Admin Amlodipine Besylate 5 mg 10/29/20 16:00 10/30/20 10:23 Amlodipine 5 Mg Tab PO 5 mg QDAY VICENTE Administration Atorvastatin Calcium 40 mg 10/29/20 22:00 10/29/20 23:00 Atorvastatin 40 Mg Tab PO 40 mg QHS VICENTE Administration Heparin Sodium (Porcine) 5,000 unit 10/29/20 22:00 10/30/20 06:30 Heparin 5,000 Unit/1 Ml Vial SUB-Q 5,000 unit Q8HR VICENTE Administration Sodium Chloride 1,000 mls @ 75 mls/hr 10/29/20 15:45 10/30/20 06:26 Nacl 0.9% 1000 Ml IV 75 mls/hr DIRECT VICENTE Administration Insulin Glargine 25 units 10/29/20 22:00 10/29/20 22:00 Insulin Glargine 100 Units/Ml SUB-Q 25 units QHS [facility] Administration Insulin Human Regular 0 units 10/29/20 22:00 10/30/20 07:30 Insulin Regular, Human 100 Units/1 Ml SUB-Q Not Given ACHS [facility] Protocol Metoprolol Tartrate 50 mg 10/29/20 16:00 10/30/20 10:24 Metoprolol Tartrate 50 Mg Tab PO Not Given BID VICENTE
[2020-10-30] MEDS: INSULIN GLARGINE 100 UNITS/ML SUB-Q SCH (21:54)
[2020-10-31] MEDS: HEPARIN 5,000 UNIT/1 ML VIAL SUB-Q SCH (05:24)
[2020-10-31] MEDS ORDERED: hydrALAZINE 20 MG/1 ML INJ IV ONE (05:29)
[2020-10-31 05:45] LABS: BUN/Creatinine Ratio 20; Blood Urea Nitrogen 20 mg/dL (7-17); Calcium 8.9 mg/dL (8.4-10.2); Hemolysis Index 2
[2020-10-31] MEDS ORDERED: LOSARTAN 50 MG TAB PO SCH (08:00)
[2020-10-31] MEDS: amLODIPine 5 MG TAB PO SCH (09:40)
[2020-10-31 09:42] VITALS: BP 140/70
[2020-10-31] MEDS: INSULIN REGULAR, HUMAN 100 UNITS/1 ML SUB-Q SCH ×2 (09:42→13:20)
--- NOTE | 2020-10-31 09:43 | Electrocardiograph Report ---
[facility] Test Date: 2020-10-29 Test Time: 09:57:57 Pat Name: VERO SHANKAR Department: Room: A452 Gender: F Tacker Off: : 1970 Requested By: ALMAS NEFF Order Number: [id number] Reading MD: Braxton Randhawa Measurements Intervals [place] Rate: 98 P: 43 IN: 201 QRS: 16 QRSD: 96 T: 53 QT: 380 QTc: 486 Interpretive Statements Sinus rhythm Borderline prolonged IN interval No previous ECG available for comparison Electronically Signed On 10-31-2020 9:43:15 EDT by Braxton Randhawa
[2020-10-31] MEDS: METOPROLOL TARTRATE 50 MG TAB PO SCH (09:44)
--- NOTE | 2020-10-31 11:10 | Discharge Summary ---
Providers - Providers Date of Admission: 10/29/20 12:17 Date of discharge: 10/31/20 Attending physician: OLMAN HERNANDEZ Primary care physician: EVI ALEXIS Hospitalization Condition: Stable Disposition: 01 HOME / SELF CARE / HOMELESS Final Discharge Diagnosis (Prints w/discharge instructions): 1.Hyponatremia. 2.Acute renal failure. 3.Dehydration. 4.Diabetes mellitus - Discharge Diagnoses (1) Hyponatremia Status: Acute (2) Hypertensive urgency Status: Acute (3) Diabetes Status: Chronic (4) Hyperlipidemia Status: Chronic Core Measure Documentation - Palliative Care Palliative Care/ Comfort Measures: Not Applicable - Core Measures Any of the following diagnoses?: none Exam - Constitutional Vitals: Temp Pulse Resp BP Pulse Ox 98.0 F 111 H 18 140/70 98 10/31/20 07:47 10/31/20 09:40 10/31/20 07:47 10/31/20 09:40 10/31/20 07:47 Plan Activity: advance as tolerated Diet: low fat, low cholesterol, low salt Plan of Treatment: 1.Follow with PCP in 1 week Follow up with: EVI ALEXIS MD [Primary Care Provider] - 3-5 Days
--- NOTE | 2020-10-31 11:47 | Electrocardiograph Report ---
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
[2020-10-31] MEDS ORDERED: ACETAMINOPHEN 325 MG TAB PO NR (12:07)
== END 2020-10-31 15:26 | disposition home or self-care (01) ==
LOC: ED 02:57 → 4A 12:17
PROVIDERS: ADMIT Internal Medicine; ATTEND Internal Medicine
DX: N17.9 Acute kidney failure, unspecified (principal); E87.1 Hypo-osmolality and hyponatremia; I10 Essential (primary) hypertension; E11.9 Type 2 diabetes mellitus without complications; E78.5 Hyperlipidemia, unspecified; F41.9 Anxiety disorder, unspecified; Z90.710 Acquired absence of both cervix and uterus; Z79.4 Long term (current) use of insulin
CPT/HCPCS: 36415; 71045; 80048; 80053; 82962; 84443; 84484; 85025; 93005; 96361; 96372; 96374; 99285; A9270; G0378; J0360; J1644; J7030; J1815